=== PATIENT | male | born 1965 | race Two or more races ===

== ENCOUNTER 2025-09-08 19:22 | Emergency (ER) | payer OTHER, SELFPAY ==
--- OUTSIDE RECORDS SUMMARY | 2025-09-02 23:59 | XMS_ITS | Continuity of Care Document ---
Author Organization [facility] Adult Address [address] [place] [address]- Care Team Providers Care Software Qa System Specialist Name Role Phone John Kaufman Primary Care [facility]ici [id number] Date(s): 08/26/25 - 09/02/25 [facility] [address] [place] [address]- Encounter Diagnosis Amputated toe of right foot(Discharge Diagnosis) - 09/02/25 Wheelchair dependence(Discharge Diagnosis) - 08/26/25 Homeless single person(Discharge Diagnosis) - 08/26/25 Attending Physician: John Kaufman Referring Physician: Guille Roberts MD Encounter Type: Office Visit Allergies, Adverse Reactions, Alerts No Known Medication Allergies Functional Status Functional Status Assessment Assessment Assessment Component Result Effecti ve Date Disability status [CUBS] I'm Thriving - no identified disability 08/26/25 Do you have serious difficulty walking or climbing stairs Yes 08/26/25 Difficulty Reading O r Writing No 08/26/25 Because of a physica l, mental, or emotional condition, do you have serious difficulty concentrating, remembering, or making decisions No 08/26/25 Are you blind, or do you have serious difficulty seeing, even when wearing glasses No 08/26/25 Are you deaf, or do you have serious difficulty hearing No 08/26/25 Difficulty communica ting in usual language No 08/26/25 Because of a physica l, mental, or emotional condition, do you have difficulty doing errands alone such as visiting a physician's office or shopping Yes 08/26/25 Do you need any jesus tional assistance or accommodations during your visit No 08/26/25 Do you have difficul ty dressing or bathing Yes 08/26/25 Immunizations Given and Recorded Vaccine Date Status Refusal Reason zoster vaccine, inactivated 07/17/25 Recorded zoster vaccine, inactivated 03/04/25 Recorded Measles/Mumps/Rubella Virus Vaccine 04/30/25 Recor ded tetanus/diphtheria/pertussis, acel(Tdap) 04/30/25 Recorded pneumococcal 21-valent conjugate vaccine 03/04/25 Recorded Medications 4x4 dressing gauze 4x4 dressing gauze, See Instructions, # 30 each, Refills 0, Tot. Refills 0, Maintenance, Wound careand treatment: R BKA - betadine paint daily; cover with DSD, dee bandage. Keep ampushield in place,04/12/25 11:35:00 AM EDT, Supply Start Date: 04/12/25 Status: Ordered Medication Dispense Status: Completed Quantity: 30.0 Unit: each Total Allowed Fills: 1 Fills Dispensed: 0 Indications: Acquired absence of right leg below knee; aspirin 81 mg oral tablet, chewable = 81 mg, By Mouth, Daily, # 30 tablet, 0 Refills, Maintenance, 08/19/25 1:20:00 PM EST, Chew Tablet,[facility], Partial fill upon patient request if the prescription is for a schedule II opioid drug., 178, cm, 08/19/25 9:49:00 EST, Height, 100, kg, 08/19/25 9:49:00 EST, Dry Weight Start Date: 08/19/25 Status: Ordered Medication Dispense Status: Completed Quantity: 30.0 Unit: tablet Total Allowed Fills: 1 Fills Dispensed: 0 atorvastatin 40 mg oral tablet = 40 mg, By Mouth, Daily at bedtime, # 30 each, 0 Refills, Maintenance, 08/19/25 1:20:00 PM EST, Tablet, [facility], Partial fill upon patient request if the prescription is for a schedule II opioid drug., 178, cm, 08/19/25 9:49:00 EST, Height, 100, kg, 08/19/25 9:49:00 EST, Dry Weight Start Date: 08/19/25 Status: Ordered Medication Dispense Status: Completed Quantity: 30.0 Unit: each Total Allowed Fills: 1 Fills Dispensed: 0 Betadine 10% swab See Instructions, Wound care and treatment: R BKA - betadine paint daily; cover with DSD, dee bandage. Keep ampushield in place, # 30 each, 0 Refills, Maintenance, 04/12/25 11:34:00 AM EDT, Partial fill upon patient request if the prescription is for a schedule II opioid drug. Start Date: 04/12/25 Status: Ordered Medication Dispense Status: Completed Quantity: 30.0 Unit: each Total Allowed Fills: 1 Fills Dispensed: 0 Diabetic Shoe Fitting and diabetic shoes Diabetic Shoe Fitting and diabetic shoes, See Instructions, # 2 each, Refills 0, Tot. Refills 0, Maintenance, Diabetic shoe fitting and diabetic shoes E11.9 E11.621, 08/06/24 11:32:00 AM EDT, Supply Start Date: 08/06/24 Status: Ordered Medication Dispense Status: Completed Quantity: 2.0 Unit: each Total Allowed Fills: 1 Fills Dispensed: 0 Electric wheelchair Electric wheelchair, See Instructions, # 1 each, Refills 0, Tot. Refills 0, Maintenance, Dx: BKA Below Knee Amputation Z89.512, 07/15/25 1:31:00 PM EDT, Supply Start Date: 07/15/25 Status: Ordered Medication Dispense Status: Completed Quantity: 1.0 Unit: each Total Allowed Fills: 1 Fills Dispensed: 0 FLUoxetine 40 mg oral capsule 1 capsule = 40 mg, By Mouth, Daily, # 30 capsule, 0 Refills, Maintenance, 08/19/25 1:20:00 PM EST, Capsule, [facility], Partial fill upon patient request if the prescription is for a schedule II opioid drug., 178, cm, 08/19/25 9:49:00 EST, Height, 100, kg, 08/19/25 9:49:00 EST, Dry Weight Start Date: 08/19/25 Status: Ordered Medication Dispense Status: Completed Quantity: 30.0 Unit: capsule Total Allowed Fills: 1 Fills Dispensed: 0 gabapentin 600 mg oral tablet 1 tablet = 600 mg, By Mouth, 3 times a day, # 90 tablet, 0 Refills, Maintenance, 08/19/25 1:20:00 PMEST, Tablet, [facility], Partial fill upon patient request if the prescription is fora schedule II opioid drug., 178, cm, 08/19/25 9:49:00 EST, Height, 100, kg, 08/19/25 9:49:00 EST, Dry Weight Start Date: 08/19/25 Status: Ordered Medication Dispense Status: Completed Quantity: 90.0 Unit: tablet Total Allowed Fills: 1 Fills Dispensed: 0 Jardiance 25 mg oral tablet 1 tablet, By Mouth, Daily in AM, # 30 tablet, 5 Refills, Maintenance, 08/19/25 1:20:00 PM EST, [facility], 178, cm, 08/19/25 9:49:00 EST, Height, 100, kg, 08/19/25 9:49:00 EST, Dry Weight Start Date: 08/19/25 Status: Ordered Medication Dispense Status: Completed Quantity: 30.0 Unit: tablet Total Allowed Fills: 6 Fills Dispensed: 0 Kerlix Wrap Kerlix Wrap, See Instructions, # 30 each, Refills 0, Tot. Refills 0, Maintenance, Wound care and treatment: R BKA - betadine paint daily; cover with DSD, dee bandage. Keep ampushield in place, 04/12/25 11:31:00 AM EDT, Supply Start Date: 04/12/25 Status: Ordered Medication Dispense Status: Completed Quantity: 30.0 Unit: each Total Allowed Fills: 1 Fills Dispensed: 0 Indications: Unspecified open wound, right foot, initial encounter; lisinopril 20 mg oral tablet 20 mg, By Mouth, Daily, # 30 capsule, Refills 0, Tot. Refills 0, Maintenance, 08/19/25 1:20:00 PM EST, Route to Pharmacy Electronically, [facility], Partial fill upon patient request if the prescription is for a schedule II opioid drug., 178, cm, 08/19/25 9:49:00 EST, Height, 100, kg, 08/19/25 9:49:00 EST, Dry Weight Start Date: 08/19/25 Status: Ordered Medication Dispense Status: Completed Quantity: 30.0 Unit: capsule Total Allowed Fills: 1 Fills Dispensed: 0 multivitamin Multiple Vitamins oral tablet 1 tablet, By Mouth, Daily, # 30 tablet, 0 Refills, Maintenance, 08/19/25 1:20:00 PM EST, Tablet, [facility], Partial fill upon patient request if the prescription is for a schedule II opioid drug., 1 tablet By Mouth Daily, 178, cm, 08/19/25 9:49:00 EST, Height, 100, kg, 08/19/25 9:49:00 EST, Dry Weight Start Date: 08/19/25 Status: Ordered Medication Dispense Status: Completed Quantity: 30.0 Unit: tablet Total Allowed Fills: 1 Fills Dispensed: 0 Right below-knee amputation prosthetic Right below-knee amputation prosthetic, See Instructions, # 1 each, Refills 0, Tot. Refills 0, Maintenance, Right below-knee amputation prosthetic, 05/18/25 4:26:00 PM EDT, Supply Start Date: 05/18/25 Status: Ordered Medication Dispense Status: Completed Quantity: 1.0 Unit: each Total Allowed Fills: 1 Fills Dispensed: 0 Right below-knee amputation stump powder hand Right below-knee amputation stump powder hand, See Instructions, # 1 each, Refills 0, Tot. Refills 0, Maintenance, Right below-knee amputation stump powder hand, 05/18/25 4:26:00 PM EDT, Supply Start Date: 05/18/25 Status: Ordered Medication Dispense Status: Completed Quantity: 1.0 Unit: each Total Allowed Fills: 1 Fills Dispensed: 0 Indications: Complete traumatic amputation at level between knee and ankle, right lower leg, initial encounter; Peripheral vascular disease, unspecified; Right foot postop heel offloading shoe Right foot postop heel offloading shoe, See Instructions, # 1 each, Refills 0, Tot. Refills 0, Maintenance, Right foot postop heel offloading shoe, 02/02/25 4:29:00 PM EDT, Supply Start Date: 02/02/25 Status: Ordered Medication Dispense Status: Completed Quantity: 1.0 Unit: each Total Allowed Fills: 1 Fills Dispensed: 0 Indications: Unspecified open wound, right foot, initial encounter; Type 2 diabetes mellitus with diabetic neuropathic arthropathy; Wheelchair See Instructions, # 1 capsule, Maintenance, [id number] [id number] Please treat and evaluate, 03/25/25 9:57:00 AM EDT, Supply Start Date: 03/25/25 Status: Ordered Medication Dispense Status: Completed Quantity: 1.0 Unit: capsule Total Allowed Fills: 1 Fills Dispensed: 0 Indications: Acquired absence of right leg below knee; Mental Status Mental Status Assessment Assessment Assessment Component Result Effecti ve Date Patient Health Questionnaire 2 item (PHQ-2) total score [Reported] 4 08/26/25 Problem List Condition Confirmation Course Effective Dates Status H ealth Status Informant Amputated toe of right foot Confirmed Active Wheelchair dependence Confirmed Active Homeless single person Confirmed Active Hyperlipidemia Confirmed Active Hypertension Confirmed Active Insulin dependent type 2 diabetes mellitus Confirmed Active Peripheral vascular disease Confirmed Active Major depression, recurrent, chronic Confirmed Active Diagnosis Diagnosis Type Effective Dates Health Status Clinical Service Informant Wheelchair dependence Discharge Diagnosis 08/26/25 Homeless single person Discharge Diagnosis 08/26/25 Amputated toe of right foot Discharge Diagnosis 09/02/25 Vital Signs Most recent to oldest [Reference Range]: 1 Height 178 cm (08/26/25 11:07 AM) Weight 96.5 kg (08/26/25 11:07 AM) Oxygen Saturation [94-100 %] 99 % (08/26/25 11:07 AM) Pulse Rate [55-90 bpm] 74 bpm (08/26/25 11:07 AM) Body Mass Index [18.5-24.99 kg/m2] 30.46 kg/m2 *H* (08/26/25 11:07 AM) Blood Pressure [90-138/55-84 mm Hg] 132/ 78mm Hg (08/26/25 11:07 AM) Respiratory Rate [16-30 br/min] 16 br/mi n (08/26/25 11:07 AM) Mode of Delivery (Oxygen) Room air (08/26/25 11:07 AM) Blood pressure sites Arm, left (08/26/25 11:07 AM) Weight Obtained Via Standing scale (08/26/25 11:07 AM) Social History Social History Type Response Smoking Status Never (less than 100 in lifetime) entered on: 01/01/25 Sexual Orientation Self described orien tation: ; Choose not to disclose Sex Sex Representation Male (finding) Patient Care team information Care Team Personnel Name: Claudio GLASER, Xavier Position: [facility] RN Member Role: Primary Care Nurse Name: Deborah James RN Position: [facility] RN Member Role: Primary Care Nurse Name: Leonor Buchanan Position: [facility] RN Member Role: Primary Care Nurse Name: Kathie Marie RN Position: [facility] RN Member Role: Primary Care Nurse Name: Jeffery Anderson RN Position: [facility] RN Member Role: Primary Care Nurse Name: Delia Win RN Position: [facility] RN Member Role: Primary Care Nurse Name: John Kaufman Position: [facility] PCO Associate Professional Member Role: PCP Address: [address] [place] [id number] Telecom: Name: Thomas Monae RN Position: [facility] RN Member Role: Primary Care Nurse Name: Sharon Reilly RN Position: [facility] RN Member Role: Primary Care Nurse Name: Cristela Tapia Position: [facility] RN Member Role: Primary Care Nurse Name: Waleska Santos RN Position: [facility] RN Member Role: Primary Care Nurse Name: Saranya Verdugo RN Position: [facility] RN Member Role: Primary Care Nurse Name: Sher Tucker RN Position: [facility] RN Member Role: Primary Care Nurse Name: Elvia Dallas RN Position: [facility] RN Member Role: Primary Care Nurse Name: Renetta Bustamante LPN Position: [facility] RN Member Role: Primary Care Nurse Name: Jamari Landry RN Position: [facility] RN Member Role: Primary Care Nurse Care Team Related Persons Name: FAZAL VALDIVIA Name: MARCIAL SUNSHINE Name: HERRERA SUNSHINE Insurance Providers Guarantor name: SHAHBAZ Health Plan Information #: 1 Payer: [facility] Payer Identifier: Member Number: [id number] Group Number: [id number] Subscriber Identifier: [id number] Relationship to Subscriber: self Coverage Type: Medicaid (Managed Care) Coverage Verification Date: Telecom: Address:
--- OUTSIDE RECORDS SUMMARY | 2025-09-04 08:02 | XMS_ITS | Continuity of Care Document ---
Author Organization [facility] ter Address [address] [place] [address]- Care Team Providers Care Meeting Specialist Name Role Phone Elpidio CABELLO, John Alvarez Primary Care Physici an [place] [facility] [place] [id number] Date(s): 09/03/25 - 09/04/[address] [address]- Discharge Disposition: A-D/C Walkout Attending Physician: Not on Staff, Attending MD Admitting Physician: Not on Staff, Admitting MD Referring Physician: Not on Staff, Referring MD Encounter Type: Disch ES Allergies, Adverse Reactions, Alerts No Known Medication Allergies Immunizations Given and Recorded Vaccine Date Status [...] Refills, Maintenance, 08/19/25 1:20:00 PM EST, Chew Tablet,[facility], Partial fill upon patient request [...] Refills, Maintenance, 08/19/25 1:20:00 PM EST, Tablet, [facility], Partial fill upon patient request [...] Refills, Maintenance, 08/19/25 1:20:00 PM EST, Capsule, [facility], Partial fill upon patient request if [...] 0 Refills, Maintenance, 08/19/25 1:20:00 PMEST, Tablet, [facility], Partial fill upon patient request if [...] 5 Refills, Maintenance, 08/19/25 1:20:00 PM EST, [facility], 178, cm, 08/19/25 9:49:00 EST, Height, [...] 1:20:00 PM EST, Route to Pharmacy Electronically, [facility], Partial fill upon patient request [...] Refills, Maintenance, 08/19/25 1:20:00 PM EST, Tablet, [facility], Partial fill upon patient request [...] Fills Dispensed: 0 Right below-knee amputation stump acls nurse Right below-knee amputation stump acls nurse, See Instructions, # 1 each, Refills 0, Tot. Refills 0, Maintenance, Right below-knee amputation stump acls nurse, 05/18/25 4:26:00 PM EDT, Supply Start Date: [...] Assessment Assessment Component Result Effecti ve Date Hancock coma score total 15 Problem List Condition Confirmation Course Effective Dates Status H ealth Status Informant Amputated toe of right foot Confirmed Active Wheelchair dependence Confirmed Active Homeless single person Confirmed Active Hyperlipidemia Confirmed Active Hypertension Confirmed Active Insulin dependent type 2 diabetes mellitus Confirmed Active Obese class I Confirmed Active Peripheral vascular disease Confirmed Active Major depression, recurrent, chronic Confirmed Active Vital Signs Most recent to oldest [Reference Range]: 1 2 3 Height 178 cm (09/04/25 12:14 AM) 178 cm (09/04/25 12:10 AM) 178 cm (09/03/25 9:44 PM) Weight 95.5 kg (09/04/25 12:14 AM) 95.5 kg (09/04/25 12:10 AM) 95.5 kg (09/03/25 9:44 PM) Oxygen Saturation [94-100 %] 96 % (09/04/25 12:10 AM) 100 % (09/03/25 9:44 PM) Pulse Rate [55-90 bpm] 88 bpm (09/04/25 12:10 AM) 66 bpm (09/03/25 9:44 PM) Body Mass Index [18.5-24.99 kg/m2] 30.14 kg/m2 *H* (09/04/25 12:10 AM) 30.14 kg/m2 *H* (09/03/25 9:44 PM) Blood Pressure [90-138/55-84 mm Hg] 173/68mm Hg *H* (09/04/25 12:10 AM) 161/82mm Hg *H* (09/03/25 9:44 PM) Respiratory Rate [16-30 br/min] 17 br/min (09/04/25 12:10 AM) 16 br/min (09/03/25 9:44 PM) Temperature [96.8-100.4 DegF] 98.5 DegF (09/04/25 12:10 AM) 98.5 DegF (09/03/25 9:44 PM) Mode of Delivery (Oxygen) Room air (09/04/25 12:10 AM) Room air (09/03/25 9:44 PM) Blood pressure sites Arm, right (09/04/25 12:10 AM) Arm, right (09/03/25 9:44 PM) Temperature Route Oral (09/04/25 12:10 AM) Oral (09/03/25 9:44 PM) Dry Weight 95.5 kg (09/04/25 12:14 AM) 95.5 kg (09/04/25 12:10 AM) 95.5 kg (09/03/25 9:44 PM) Weight Obtained Via Patient lift hanging scale (09/03/25 9:44 PM) Dry Weight Obtained Via Patient/family s tated (09/03/25 9:44 PM) Social History Social History Type Response Smoking Status Never (less than 100 in lifetime) entered on: 01/01/25 Sexual Orientation Self described orien tation: ; Choose not to disclose Sex Sex Representation Male (finding) Status N/A Patient Care team information Care Team Personnel Name: Claudio GLASER, Xavier Position: [facility] RN Member Role: Primary Care Nurse Name: Deborah James RN Position: [facility] RN Member Role: Primary Care Nurse Name: Leonor Buchanan Position: [facility] RN Member Role: Primary Care Nurse Name: Kathie Marie RN Position: S RN Member Role: Primary Care Nurse Name: Jeffery Anderson RN Position: [facility] RN Member Role: Primary Care Nurse Name: Delia Win RN Position: [facility] RN Member Role: Primary Care Nurse Name: John Kaufman Position: [facility] PCO Associate Professional Member Role: PCP Address: [address] [place] [id number] Telecom: Name: Thomas Monae RN Position: [facility] RN Member Role: Primary Care Nurse Name: Sharon Reilly RN Position: [facility] RN Member Role: Primary Care Nurse Name: Cristela Tapia Position: [facility] RN Member Role: Primary Care Nurse Name: Waleska Santos RN Position: [facility] RN Member Role: Primary Care Nurse Name: Saranya Verdugo RN Position: [facility] RN Member Role: Primary Care Nurse Name: Sher Tucker RN Position: [facility] RN Member Role: Primary Care Nurse Name: Elvia Dallas RN Position: [facility] RN Member Role: Primary Care Nurse Name: Renetta Bustamante LPN Position: [facility] RN Member Role: Primary Care Nurse Name: Jamari Landry RN Position: [facility] RN Member Role: Primary Care Nurse Care Team Related Persons Name: FAZAL VALDIVIA Name: MARCIAL SUNSHINE Name: HERRERA SUNSHINE Insurance Providers Guarantor name: SHAHBAZ Health Plan Information #: 1 Payer: [facility] Payer Identifier: SHAHBAZ Member Number: [id number] Group Number: [id number] Subscriber Identifier: [id number] Relationship to Subscriber: self Coverage Type: Medicaid (Managed Care) Coverage Verification Date: SHAHBAZ Telecom: NA Address:
--- OUTSIDE RECORDS SUMMARY | 2025-09-04 22:36 | XMS_ITS | Continuity of Care Document ---
Author Organization [facility] ter Address [address] [place] [address]- Care Team Providers Care Liquid Loader Name Role Phone Elpidio CABELLO, John Alvarez Primary Care Physici an Encounter [facility] Date(s): 09/04/25 - 09/04/[address] [address]- Discharge Disposition: A-D/C Home Attending Physician: Zaire Cooley MD Admitting Physician: Zaire Cooley MD Referring Physician: Not on Staff, Referring [...] Refills, Maintenance, 08/19/25 1:20:00 PM EST, Chew Tablet,[facility], Partial fill upon patient [...] Refills, Maintenance, 08/19/25 1:20:00 PM EST, Tablet, [facility], Partial fill upon patient [...] Refills, Maintenance, 08/19/25 1:20:00 PM EST, Capsule, [facility], Partial fill upon patient request if the prescription is for a schedule II opioid drug., 178, cm, 08/19/25 9:49:00 EST, Height, 100, kg, 08/19/25 9:49:00 EST, Dry Weight Start Date: 08/19/25 Status: Ordered Medication Dispense Status: Completed Quantity: 30.0 Unit: capsule Total Allowed Fills: 1 Fills Dispensed: 0 gabapentin 300 mg oral capsule 600 mg, Capsule, By Mouth, Once, STAT, 09/04/25 9:45:00 PM EST, Stop date 09/04/25 10:26:13 PM EST Start Date: 09/04/25 Stop Date: 09/04/25 Status: Completed Medication Dispense Status: Completed Total Allowed Fills: 1 Fills Dispensed: 0 gabapentin 600 mg oral tablet 1 tablet = 600 mg, By Mouth, 3 times a day, # 90 tablet, 0 Refills, Maintenance, 08/19/25 1:20:00 PMEST, Tablet, [facility], Partial fill upon patient [...] 5 Refills, Maintenance, 08/19/25 1:20:00 PM EST, [facility], 178, cm, 08/19/25 9:49:00 [...] 1:20:00 PM EST, Route to Pharmacy Electronically, [facility], Partial fill upon patient request if the prescription is for a schedule II opioid drug., 178, cm, 08/19/25 9:49:00 EST, Height, 100, kg, 08/19/25 9:49:00 EST, Dry Weight Start Date: 08/19/25 Status: Ordered Medication Dispense Status: Completed Quantity: 30.0 Unit: capsule Total Allowed Fills: 1 Fills Dispensed: 0 lisinopril 20 mg oral tablet 20 mg, Tablet, By Mouth, Once, STAT, 09/04/25 9:46:00 PM EST, Stop date 09/04/25 10:26:14 PM EST Start Date: 09/04/25 Stop Date: 09/04/25 Status: Completed Medication Dispense Status: Completed Total Allowed Fills: 1 Fills Dispensed: 0 multivitamin Multiple Vitamins oral tablet 1 tablet, By Mouth, Daily, # 30 tablet, 0 Refills, Maintenance, 08/19/25 1:20:00 PM EST, Tablet, [facility], Partial fill upon patient request if [...] Fills Dispensed: 0 Right below-knee amputation 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, 05/18/25 4:26:00 PM EDT, Supply Start Date: [...] Assessment Assessment Component Result Effecti ve Date Courtney coma score total 15 Problem List Condition [...] recent to oldest [Reference Range]: 1 2 Oxygen Saturation [94-100 %] 99 % (09/04/25 6:36 PM) Pulse Rate [55-90 bpm] 89 bpm (09/04/25 6:36 PM) Blood Pressure [90-138/55-84 mm Hg] 162/ 78mm Hg *H* (09/04/25 10:23 PM) 174/103mm Hg *H* (09/04/25 6:36 PM) Respiratory Rate [16-30 br/min] 18 br/mi n (09/04/25 10:24 PM) 12 br/min *L* (09/04/25 6:36 PM) Temperature [96.8-100.4 DegF] 98.8 DegF (09/04/25 6:36 PM) Mode of Delivery (Oxygen) Room air (09/04/25 6:36 PM) Blood pressure sites Arm, left (09/04/25 6:36 PM) Temperature Route Oral (09/04/25 6:36 PM) Social History Social History Type Response Smoking Status Never (less than 100 in lifetime) entered on: 01/01/25 Sexual Orientation Self described orien tation: ; Choose not to disclose Sex Sex Representation Male (finding) Status Not Patient Care team information Care Team Personnel Name: Xavier Snyder RN Position: [facility] RN Member Role: Primary Care Nurse Name: Deborah James RN Position: [facility] RN Member Role: Primary Care Nurse Name: Leonor Buchanan Position: [facility] RN Member Role: Primary Care Nurse Name: Kathie Marie RN Position: [facility] RN Member Role: Primary Care Nurse Name: Jeffery Anderson RN Position: [facility] RN Member Role: Primary Care Nurse Name: Delia Win RN Position: S RN Member Role: Primary Care Nurse Name: John Kaufman Position: [facility] PCO Associate Professional Member Role: PCP Address: [address] [place] [address] [place] [address]- Telecom: Name: Thomas Monae RN Position: S RN Member Role: Primary Care Nurse Name: Sharon Reilly RN Position: S RN Member Role: Primary Care Nurse Name: Cristela Tapia Position: S RN Member Role: Primary Care Nurse Name: Waleska Santos RN Position: S RN Member Role: Primary Care Nurse Name: Saranya Verdugo RN Position: [facility] RN Member Role: Primary Care Nurse Name: Sher Tucker RN Position: [facility] RN Member Role: Primary Care Nurse Name: Elvia Dallas RN Position: [facility] RN Member Role: Primary Care Nurse Name: Renetta Bustamante LPN Position: [facility] RN Member Role: Primary Care Nurse Name: Jamari Landry RN Position: [facility] RN Member Role: Primary Care Nurse Care Team Related Persons Name: FAZAL VALDIVIA Name: MARCIAL SUNSHINE Name: HERRERA SUNSHINE Insurance Providers Guarantor name: SHAHBAZ Health Plan Information #: 1 Payer: [facility] Payer Identifier: SHAHBAZ Member Number: [id number] Group Number: [id number] Subscriber Identifier: [id number] Relationship to Subscriber: self Coverage Type: Medicaid (Managed Care) Coverage Verification Date: Telecom: Address:
--- OUTSIDE RECORDS SUMMARY | 2025-09-05 23:59 | XMS_ITS | Continuity of Care Document ---
Author Organization [facility] Address [address] [place] [address]- Care Team Providers Care Group Insurance Special Agent Name Role Phone Elpidio CABELLO, John Alvarez Primary Care Physici an Encounter [facility] Date(s): 08/06/25 - 09/05/25 [facility]/[address] [address]- Encounter Type: Triage Allergies, Adverse Reactions, Alerts No Known Medication [...] Refills, Maintenance, 08/19/25 1:20:00 PM EST, Chew Tablet,[facility], Partial fill upon patient request [...] Refills, Maintenance, 08/19/25 1:20:00 PM EST, Tablet, [facility], Partial fill upon patient request [...] Refills, Maintenance, 08/19/25 1:20:00 PM EST, Capsule, [facility], Partial fill upon patient request [...] 0 Refills, Maintenance, 08/19/25 1:20:00 PMEST, [facility] fill upon patient request if [...] 5 Refills, Maintenance, 08/19/25 1:20:00 PM EST, [facility], 178, cm, 08/19/25 9:49:00 EST, Height, [...] 1:20:00 PM EST, Route to Pharmacy Electronically, [facility], Partial fill upon patient request [...] Refills, Maintenance, 08/19/25 1:20:00 PM EST, Tablet, [facility], Partial fill upon patient request if [...] Fills Dispensed: 0 Right below-knee amputation stump general pediatrician Right below-knee amputation stump general pediatrician, See Instructions, # 1 each, Refills 0, Tot. Refills 0, Maintenance, Right below-knee amputation stump general pediatrician, 05/18/25 4:26:00 PM EDT, Supply Start Date: [...] Acquired absence of right leg below knee; Problem List Condition Confirmation Course Effective Dates Status H ealth Status Informant Amputated toe of right foot Confirmed Active Wheelchair dependence Confirmed Active Homeless single person Confirmed Active Hyperlipidemia Confirmed Active Hypertension Confirmed Active Insulin dependent type 2 diabetes mellitus Confirmed Active Obese class I Confirmed Active Peripheral vascular disease Confirmed Active Major depression, recurrent, chronic Confirmed Active Social History Social History Type Response Smoking Status Never (less than 100 in lifetime) entered on: 01/01/25 Sexual Orientation Self described orien tation: ; Choose not to disclose Sex Sex Representation Male (finding) Patient Care team information Care Team Personnel Name: Xavier Snyder RN Position: [facility] RN Member Role: Primary Care Nurse Name: Deborah James RN Position: [facility] RN Member Role: Primary Care Nurse Name: Leonor Buchanan Position: [facility] RN Member Role: Primary Care Nurse Name: Kathie Marie RN Position: [facility] RN Member Role: Primary Care Nurse Name: Jeffery Anderson RN Position: [facility] RN Member Role: Primary Care Nurse Name: Delia Win RN Position: [facility] RN Member Role: Primary Care Nurse Name: John Kaufman Position: [facility] PCO Associate Professional Member Role: PCP Address: [address] [place] [address]- Telecom: Name: Thomas Monae RN Position: S RN Member Role: Primary Care Nurse Name: Sharon Reilly RN Position: [facility] RN Member Role: Primary Care Nurse Name: Cristela Tapia Position: [facility] RN Member Role: Primary Care Nurse Name: Waleska Santos RN Position: [facility] RN Member Role: Primary Care Nurse Name: Saranya Verdugo RN Position: [facility] RN Member Role: Primary Care Nurse Name: Sher Tucker RN Position: [facility] RN Member Role: Primary Care Nurse Name: Elvia Dallas RN Position: [facility] RN Member Role: Primary Care Nurse Name: Renetta Bustamante LPN Position: [facility] RN Member Role: Primary Care Nurse Name: Jamari Landry RN Position: [facility] RN Member Role: Primary Care Nurse Care Team Related Persons Name: FAZAL VALDIVIA Name: MARCIAL SUNSHINE Name: HERRERA SUNSHINE Insurance Providers Guarantor name: SHAHBAZ Health Plan Information #: 1 Payer: [facility] Payer Identifier: SHAHBAZ Member Number: [id number] Group Number: [id number] Subscriber Identifier: SHAHBAZ Relationship to Subscriber: self Coverage Type: Medicaid (Managed Care) Coverage Verification Date: NA Telecom: NA Address:
--- OUTSIDE RECORDS SUMMARY | 2025-09-05 23:59 | XMS_ITS | Continuity of Care Document ---
Author Organization [facility] Address [address] [place] [address]- Care Team Providers Care Draw Press Operator Name Role Phone Elpidio CABELLO, John Alvarez Primary Care Physici an Encounter [facility] Date(s): 08/06/25 - 09/05/25 [facility] [address] [place] [address]- Encounter Type: Triage Allergies, Adverse Reactions, Alerts [...] Refills, Maintenance, 08/19/25 1:20:00 PM EST, Chew Tablet,[facility], Partial fill upon patient request [...] Refills, Maintenance, 08/19/25 1:20:00 PM EST, Tablet, [facility], Partial fill upon patient request [...] Refills, Maintenance, 08/19/25 1:20:00 PM EST, Capsule, [facility], Partial fill upon patient request [...] 0 Refills, Maintenance, 08/19/25 1:20:00 PMEST, Tablet, [facility] 3, Partial fill upon patient request [...] 5 Refills, Maintenance, 08/19/25 1:20:00 PM EST, [facility] 3, 178, cm, 08/19/25 9:49:00 EST, [...] 1:20:00 PM EST, Route to Pharmacy Electronically, [facility], Partial fill upon patient request [...] Refills, Maintenance, 08/19/25 1:20:00 PM EST, Tablet, [facility], Partial fill upon patient request [...] Fills Dispensed: 0 Right below-knee amputation stump antisqueak applier Right below-knee amputation stump antisqueak applier, See Instructions, # 1 each, Refills 0, Tot. Refills 0, Maintenance, Right below-knee amputation stump antisqueak applier, 05/18/25 4:26:00 PM EDT, Supply Start Date: [...] Team Personnel Name: Xavier Snyder RN Position: [facility] RN Member Role: Primary Care Nurse Name: Deborah James RN Position: [facility] RN Member Role: Primary Care Nurse Name: Leonor Buchanan Position: [facility] RN Member Role: Primary Care Nurse Name: Kathie Marie RN Position: [facility] RN Member Role: Primary Care Nurse Name: Jeffery Anderson RN Position: [facility] RN Member Role: Primary Care Nurse Name: Delia Win RN Position: [facility] RN Member Role: Primary Care Nurse Name: John Kaufman Position: [facility] PCO Associate Professional Member Role: PCP Address: [address] [place] [id number] Telecom: Name: Thomas Monae RN Position: S RN Member Role: Primary Care Nurse Name: Sharon Reilly RN Position: [facility] RN Member Role: Primary Care Nurse Name: Cristela Tapia Position: [facility] RN Member Role: Primary Care Nurse Name: aWleska Santos RN Position: [facility] RN Member Role: Primary Care Nurse Name: Saranya Verdugo RN Position: [facility] RN Member Role: Primary Care Nurse Name: Sher Tucker RN Position: [facility] RN Member Role: Primary Care Nurse Name: Elvia Dallas RN Position: [facility] RN Member Role: Primary Care Nurse Name: Renetta Bustamante LPN Position: [facility] RN Member Role: Primary Care Nurse Name: Jamari Landry RN Position: [facility] RN Member Role: Primary Care Nurse Care Team Related Persons Name: FAZAL VALDIVIA Name: MARCIAL SUNSHINE Name: HERRERA SUNSHINE Insurance Providers Guarantor name: SHAHBAZ Health Plan Information #: 1 Payer: [facility] Payer Identifier: SHAHBAZ Member Number: [id number] Group Number: [id number] Subscriber Identifier: [id number] Relationship to Subscriber: self Coverage Type: Medicaid (Managed Care) Coverage Verification Date: NA Telecom: Address:
--- NOTE | ~2025-09-08 | XR_ITS ---
CLINICAL HISTORY: L shoulder pain , fall 4 view left shoulder Comparison: None provided Findings: Bones intact. No dislocations. 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 No erosions. No radiopaque foreign body. Calcification of the distal supraspinatus. IMPRESSION: 1. No acute osseous abnormality. 2. Supraspinatus calcific tendinosis. This document has been electronically signed by: Vincent Roberts MD, PHD on 09/08/2025 23:20:52
[2025-09-08 19:31] VITALS: BP 150/80; BP 159/77; PULSE 85; PULSE 88; RESP 18; TEMP 37.1; O2SAT 96; O2SAT 98; BMI 32.2
--- OUTSIDE RECORDS SUMMARY | 2025-09-08 20:06 | XMS_ITS | Encounter Summary ---
Author Organization [facility] Address [address] [place] [id number] Phone Care Team Providers Care Supplier Quality Engineer Name Role Phone Pcp, Unknown Primary Care Provider John Nickerson Primary Care Provide r Encounter Details Date Type Department Care Team (Late st Contact Info) Description 05/05/2025 Procedure Pass [facility], Ct Scan - [facility] [address] [place] [address] Social History Tobacco Use Types Packs/Day Years Used Date Smoking Tobacco: Never Smokeless Tobacco: Never Alcohol Use Standard Drinks/Week Comments Not Currently 0 (1 standard drink = 0.6 oz pur e alcohol) Education Answer Date Recorded Are you interested in more education? Not on fabián e 03/18/2025 Are you concerned about learning? Not on file 03/18/2025 No 03/18/2025 No 03/18/2025 Food Answer Date Recorded Within the past 6 months we worried whether our food would run out before we got money to buy more. Never True 05/05/2025 Within the past 6 months the food we bought just didn't last and we didn't have enough money to get more. Never True Residential Stability Answer Date Recor ded What is your housing situation today? I have adama sing 05/05/2025 How many times have you move d in the past 12 months? Zero (I did not move) 05/05/2025 Paying for Meds Answer Date Recorded Do you have trouble paying for medicines? No 05/05/2025 Paying Utility Bills Answer Date Record ed Do you have trouble paying your heating or elect ricity bill? No 05/05/2025 Transportation Answer Date Recorded Has the lack of transportati on kept you from medical appointments or from getting medications? No 05/05/2025 Digital Access Answer Date Recorded No 05/05/2025 Yes 05/05/2025 Do you have reliable internet access at home? Ye s 05/05/2025 Do you have a device (e.g., phone, tablet, computer) with a working camera? Yes 05/05/2025 Intimate Partner Violence Answer Date R ecorded Are you denied basic needs s uch as food, clothing, or medical care? No 05/05/2025 In the past 12 months have y ou been in a relationship with a person who hurts, threatens, or tries to control you? No 05/05/2025 Are you denied basic needs s uch as food, clothing, or medical care? No 05/05/2025 In the past 12 months have y ou been in a relationship with a person who hurts, threatens, or tries to control you? No 05/05/2025 Sex and Gender Information Value Date Recorded Sex Assigned at Male 05/05/2025 3:55 PM EDT Legal Sex Male 3:16 PM EDT Gender Identity Male 05/05/2025 3:55 PM EDT Sexual Orientation Straight 05/05/2025 3: 55 PM EDT documented as of this encounter Functional Status * Calculated C-SSRS Risk Score (Lifetime/Recent) Answer Date of Assessment Author No Risk Indicated 05/05/2025 3:55 PM EDT Rosemary Hdez, RN * Petroleum Suicide Severity Rating Scale (Screener/Recent Self-Report) Question Answer Date of Assessment Author 1. Wish to be (Past 1 Month) No 025 3:55 PM EDT Rosemary Meza, RN 2. Non-Specific Active Suici sarah Thoughts (Past 1 Month) No 05/05/2025 3:55 PM EDT Rosemary Meza, RN 6. Suicidal Behavior (Lifetime) No 3:55 PM EDT Rosemary Meza, RN documented as of this encounter Plan of Treatment Not on file documented as of this encounter Visit Diagnoses Not on filedocumented in this encounter Additional Health Concerns Infection Onset Date Last Indicated Resolved Time CoV-Risk 07/01/2025 07/01/2025 07/12/2025 1:21 AM EDT documented as of this encounter Care Teams Supplier Quality Engineer Relationship Specialty Start Date End Date Pcp, Unknown PCP - General 05/05/25 06/30/25 John Magallanes PA [address] [place] [address] PCP - General Physician Physical Education Teacher 07/01/25 documented as of this encounter Additional Source Comments The information contained in this document represents components of the legal health record. It is not the complete legal health record.[facility]
--- OUTSIDE RECORDS SUMMARY | 2025-09-08 20:06 | XMS_ITS | Encounter Summary ---
Author Organization [facility] Address [address] [place] [phone] Phone Care Team Providers Care Meat Butcher Name Role Phone Pcp, Unknown Primary Care Provider John Nickerson Primary Care Provide r Encounter Details Date Type Department Care Team (Late st Contact Info) Description 05/05/2025 Procedure Pass [facility], Ct Scan - [facility] [address] [place] [address] Social History Tobacco Use Types Packs/Day Years [...] 3:55 PM EDT Rosemary Hdez, RN * Rogers Suicide Severity Rating Scale (Screener/Recent Self-Report) Question [...] documented as of this encounter Care Teams Meat Butcher Relationship Specialty Start Date End Date Pcp, Unknown PCP - General 05/05/25 06/30/25 John Magallanes PA [address] [place] [address] PCP - General Physician Manager Costing 07/01/25 documented as of this encounter Additional Source Comments The information contained in this document represents components of the legal health record. It is not the complete legal health record.[facility]
--- OUTSIDE RECORDS SUMMARY | 2025-09-08 20:06 | XMS_ITS | Clinical Summary ---
Author Organization [facility] Address [address] [place] [address] [place] [id number] Phone Care Team Providers Care Ordering Box Operator Name Role Phone John Magallanes Primary Care Provide r Allergies No known active allergies Medications ondansetron (ZOFRAN-ODT) 4 MG disintegrating tablet (To-Go) Take 1-2 tablet(s) by mouth every 8 hours as needed for nausea/vomit ing 6 tablet 5 Active ondansetron (ZOFRAN-ODT) 4 MG disintegrating tablet Take 1 tablet (4 mg total) by mouth every 8 (eight) hours as needed for nausea. 8 tablet 5 Active polyethylene glycol (MIRALAX) 17 gram packet Take 17 g by mouth daily. Active tamsulosin (FLOMAX) 0.4 mg Cap Take 0.4 mg by mouth daily. Active ID-ketorolac (15-069H) 0.5% ophthalmic solution Place 1 drop into the left eye 4 (four) times a day. Each eye Active ofloxacin (OCUFLOX) 0.3 % ophthalmic solution Place 1 drop into each eye 4 (four) times a day. Active prednisoLONE acetate (PRED FORTE) 1 % ophthalmic suspension Place 1 drop into the left eye 4 (four) times a day. Active sulfamethoxazole-tr imethoprim (BACTRIM DS) 800-160 mg per tablet Take 1 tablet by mouth 2 (two) times a day. Active insulin lispro (ADMELOG, HUMALOG) 100 unit/mL injection pen Inject 2 Units under the skin 3 (three) times a day with meals. Active aspirin 81 MG EC tablet Take 81 mg by mouth daily. Active atorvastatin (LIPITOR) 40 MG tablet Take 40 mg by mouth nightly at bedtime. Active docusate (COLACE) 100 mg tablet Take 100 mg by mouth 2 (two) times a day. Active empagliflozin (JARDIANCE) 25 mg tablet Take 25 mg by mouth daily. Active insulin glargine (LANTUS) 100 unit/mL injection vial Inject 10 Units under the skin daily. Active lisinopril (PRINIVIL,ZESTRIL) 20 MG tablet Take 20 mg by mouth daily. Active oxyCODONE HCl 10 mg Tab Take 5 mg by mouth every 4 (four) hours as needed (pain). Active gabapentin (NEURONTIN) 100 MG capsule Take 6 capsules (600 mg total) by mouth 3 (three) times a day for 5 days. 90 capsule Active Encounters Date Type Department Care Team Description 08/28/2025 7:34 PM EST - 08/29/2025 7:08 AM EST Emergency [facility] [address] [place] [address] Yumi Gill MD Discharge Disposition: Home or Self Care 07/01/2025 7:19 AM EDT - 07/01/2025 10:42 AM EDT Emergency [facility] Emergency [address] [place] [address] Discharge Disposition: Home or Self Care 06/26/2025 8:58 PM EDT - 06/26/2025 10:17 PM EDT Emergency [facility] [address] [place] [address] Marcial Luna MD Discharge Disposition: Home or Self Care from Last 3 Months Social History Tobacco Use Types Packs/Day Years Used Date Smoking Tobacco: Never Smokeless Tobacco: Never Tobacco Cessation:Counseling Given: Not Answered Alcohol Use Standard Drinks/Week Comments Not Currently [...] got money to buy more. Never True 07/01/2025 Within the past 6 months the food we bought just didn't last and we didn't have enough money to get more. Never True Residential Stability Answer Date Recor ded What is your housing situation today? I have adama sr 07/01/2025 How many times have you move d in the past 12 months? Zero (I did not move) 07/01/2025 Paying for Meds Answer Date Recorded Do you have trouble paying for medicines? No 07/01/2025 Paying Utility Bills Answer Date Record ed Do you have trouble paying your heating or elect ricity bill? No 07/01/2025 Transportation Answer Date Recorded Has the lack of transportati on kept you from medical appointments or from getting medications? Yes 07/01/2025 Digital Access Answer Date Recorded No 07/01/2025 Yes 07/01/2025 Do you have reliable internet access at home? Ye s 07/01/2025 Do you have a device (e.g., phone, tablet, computer) with a working camera? Yes 07/01/2025 Intimate Partner Violence Answer Date R ecorded Are you denied basic needs s uch as food, clothing, or medical care? Deferred 08/28/2025 In the past 12 months have y ou been in a relationship with a person who hurts, threatens, or tries to control you? Deferred 08/28/2025 Are you denied basic needs s uch as food, clothing, or medical care? Deferred 08/28/2025 In the past 12 months have y ou been in a relationship with a person who hurts, threatens, or tries to control you? Deferred 08/28/2025 Sex and Gender Information Value Date Recorded Sex Assigned at Male 05/05/2025 3:55 PM EDT Legal Sex Male 3:16 PM EDT Gender Identity Male 05/05/2025 3:55 PM EDT Sexual Orientation Straight 05/05/2025 3: 55 PM EDT Last Filed Vital Signs Vital Sign Reading Time Taken Comments Blood Pressure 149/85 08/29/2025 5:53 AM EST Pulse 77 08/29/2025 5:53 AM EST Temperature 36.1 C (97 F) 08/29/2025 5:53 AM EST Respiratory Rate 16 08/29/2025 5:53 AM EST Oxygen Saturation 100% 08/29/2025 5:53 AM EST Inhaled Oxygen Concentration - - Weight 93 kg (205 lb) 07/01/2025 7:28 AM EDT Height 182.9 cm (6') 07/01/2025 7:28 AM EDT Body Mass Index 27.8 07/01/2025 7:28 AM EDT Plan of Treatment Health Maintenance Due Date Last Done Comments Adult Td,Tdap Booster 1964 CREATININE LEVEL 1964 LIPID PANEL 1964 POTASSIUM LEVEL 1964 DEPRESSION SCREENING 1976 HEPATITIS C SCREENING 1982 HIV ONE-TIME SCREENING (18-6 5 YEARS) 1982 SMOKING STATUS SCREENING (On ce After 26 Yrs) 1990 COLOGUARD 2009 COLONOSCOPY 2009 COLORECTAL CANCER SCREENING 2009 FIT TEST 2009 FOBT 2009 SIGMOIDOSCOPY 2009 VIRTUAL COLONOSCOPY 2009 PNEUMOCOCCAL VACCINES (50+ y ears) (1 of 1 - PCV) 2014 RSV VACCINE (1 - Risk 50-74 years 1-dose series) 2014 ZOSTER VACCINES (1 of 2) 2014 INFLUENZA VACCINE (#1) 2025 COVID-19 VACCINE (1 - 2024-2 6 season) 2025 SCREENING FOR DIABETES 08/29/2028 08/29/2025 HEPATITIS A VACCINES Aged Out No long er eligible based on patient's age to complete this topic HIB VACCINES Aged Out No longer eligi ble based on patient's age to complete this topic MENINGOCOCCAL VACCINES (ACWY) Aged Out No longer eligible based on patient's age to complete this topic MENINGOCOCCAL VACCINES (B) Aged Out N o longer eligible based on patient's age to complete this topic Medical Devices Not on file Procedures Procedure Name Priority Date/Time Associated Diagnosis Comments POCT GLUCOSE STAT 08/29/2025 1:03 AM EST XR FEMUR (LEFT) 2 VIEWS Routine 08/28/2025 8:14 PM EST XR SHOULDER 2 VIEWS (LEFT) Routine 08/28/2025 8:13 PM EST ECG 12-LEAD STAT 07/01/2025 9:45 AM EDT POCT GLUCOSE Routine 07/01/2025 8:45 AM EDT COVID PANDEMIC RESPIRATORY VIRAL ORDER (PRO) STAT 07/01/2025 8:42 AM EDT POCT GLUCOSE Routine 06/26/2025 7:30 PM EDT from Last 3 Months Results * (ABNORMAL) POCT Glucose (08/29/2025 1:03 AM EST) Glucose 118(H) 70 - 99 mg/dL 08/29/2025 1:11 AM EST [facility] Blood (Blood) 08/29/2025 1:0 3 AM EST 08/29/2025 1:11 AM EST us Yumi Gill MD LAB POCT DOCKED DEVICE UNSOL ICTED RESULTS Final Result Performing Organization Address City/State/[facility] Co de Phone Number [address] [address] * XR FEMUR (LEFT) 2 VIEWS (08/28/2025 8:14 PM EST) Anatomical Region Laterality Modality Thigh Left Computed Radiogr aphy 08/28/2025 9:24 PM EST Impressions 08/28/2025 9:25 PM EST No fracture or dislocation. Narrative 08/28/2025 9:25 PM EST XR FEMUR 2 OR MORE VIEWS (LEFT) Referring clinician's provided indication for this examination in Epic: Pain COMPARISON: None FINDINGS: No fracture. Normal alignment. No lytic or blastic lesion. Visualized portion of the hip and knee appear normal. Procedure Note Tere Christie MD - 08/28/2025 XR FEMUR 2 OR MORE VIEWS (LEFT) Referring clinician's provided indication for this examination in [facility]:Pain COMPARISON: None FINDINGS: No fracture. Normal alignment. No lytic or blastic lesion. Visualizedportion of the hip and knee appear normal. IMPRESSION: No fracture or dislocation. Jose Alejandro Walls PA-C IMG XR LOWER EXTREMITY Final Result * XR SHOULDER 2 VIEWS (LEFT) (08/28/2025 8:13 PM EST) Anatomical Region Laterality Modality Shoulder Left Computed Radiogr aphy 08/28/2025 9:23 PM EST Impressions 08/28/2025 9:24 PM EST No fracture or dislocation. Narrative 08/28/2025 9:24 PM EST XR SHOULDER 2 OR MORE VIEWS (LEFT) Referring clinician's provided indication for this examination in [facility]: Pain COMPARISON: None FINDINGS: No acute fracture or dislocation. Globular mineralized densities projecting adjacent to the greater tuberosity likely reflects calcific tendinopathy. Moderate degenerative changes of the joint. Procedure Note Tere Christie MD - 08/28/2025 XR SHOULDER 2 OR MORE VIEWS (LEFT) Referring clinician's provided indication for this examination in [facility]:Pain COMPARISON: None FINDINGS: No acute fracture or dislocation. Globular mineralized densitiesprojecting adjacent to the greater tuberosity likely reflects calcifictendinopathy. Moderate degenerative changes of the joint. IMPRESSION: No fracture or dislocation. Jose Alejandro Walls PA-C IMG XR UPPER EXTREMITY Final Result * ECG 12-LEAD (07/01/2025 9:45 AM EDT) Ventricular Rate EKG/MIN 77 BPM [facility] Atrial Rate 77 BPM [facility] [place] Interval 136 ms [facility] QRS Duration 78 ms [facility] QT Interval 400 ms [facility] QTC Interval 452 ms [facility] [place] 25 degrees [facility] R [place] 28 degrees [facility] T [place] 37 degrees [facility] 07/01/2025 9:45 AM EDT 07/01/2025 4:59 PM EDT Narrative [facility] - 07/01/2025 4:59 PM EDT Normal sinus rhythm Normal ECG No previous ECGs available Confirmed by Preet Mcelroy ([id number]) on 07/01/2025 4:59:42 PM us Maribel Reese PA-C ECG ORDERABLES Final Resul t Performing Organization Address [facility] de Phone Number [email or web address] * (ABNORMAL) POCT Glucose (07/01/2025 8:45 AM EDT) Only the most recent of2 resultswithin the time period is included. Glucose, POCT 108(H) 70 - 100 mg/dL [facility] 07/01/2025 8:45 AM EDT 07/01/2025 8:47 AM EDT us Unknown Unknown MD POINT OF CARE TEST ORDERABLES Final Result Performing Organization Address [facility] de Phone Number [address] [address] * COVID Pandemic Respiratory Viral Order (PRO) (07/01/2025 8:42 AM EDT) [facility] Signature Test Ordered Rapid COVID has been ordered [facility] Specimen Source/Description NASAL [facility] SARS-CoV 2 (COVID-19) PCR Not Detected Not Detected [facility] Comment: SARS-CoV-2 not detected Negative results do not preclude SARS-CoV-2 infection and should not be used as the sole basis for patient management decisions. Negative results must be combined with clinical observations, patient history, and epidemiological information. Other (Nasopharyngeal swab) 07/01/2025 8:42 AM EDT 07/01/2025 9:08 AM EDT us Maribel Reese PA-C LAB GENERAL ORDERABLES Ginger l Result Performing Organization Address [facility] Co de Phone Number [address] [phone] from Last 3 Months Insurance [employer] Care Teams Ordering Box Operator Relationship Specialty Start Date End Date John Magallanes PA [facility] [place] [address] PCP - General Physician Ranger Aide 07/01/25 Additional Source Comments The information contained in this document represents components of the legal health record. It is not the complete legal health record.[facility]
--- OUTSIDE RECORDS SUMMARY | 2025-09-08 20:06 | XMS_ITS | Clinical Summary ---
Author Organization 175 [facility] Address [address] [place] [address] Phone Care Team Providers Care [employer] Name Role Phone Guille Roberts MD Primary Care Provider [phone] Allergies No known active allergies Medications No known medications Encounters Date Type Department Care Team Description 08/22/2025 7:33 PM EST - 08/22/2025 8:29 PM [facility] [address] [place] [address] Fall, initial encounter (Primary Dx); Homeless; Encounter for medication refill Discharge Disposition: Home or Self Care 08/17/2025 10:18 PM EST - 08/18/2025 5:31 PM [facility] Emergency [address] [place] [address] Winifred Moody MD [place], [place], [place] Suicidal ideation (Primary Dx); Threatening to others; Homelessness Discharge Disposition: Home or Self Care from Last 3 Months Surgical History Surgery Date Site/Laterality Comments LEG AMPUTATION THROUGH LOWER TIBIA AND FIBULA Right Medical History Medical History Date Comments DM (diabetes mellitus) ([facility] V24, [facility] V28 ) HTN (hypertension) Hyperlipidemia Depression Below-knee amputation ([facility] V24, [facility] V28) right Social History Tobacco Use Types Packs/Day Years Used Date Smoking Tobacco: Never Smokeless Tobacco: Current Tobacco Cessation:Ready to Q uit: Not Asked; Counseling Given: Not Answered Alcohol Use Standard Drinks/Week Comments Never 0 (1 standard drink = 0.6 oz pur e alcohol) Food Access & Nutrition Answer Date Rec orded Do you have access to a vari ety of food including fruits and vegetables? No 08/18/2025 Access to Healthcare Answer Date Record ed Within the last 3 months, ho w many times did you visit the emergency department for your medical care? 3 08/18/2025 Health Literacy Answer Date Recorded How often do you need to hav e someone help you when you read instructions, pamphlets, or other written material from your doctor or pharmacy? Never 08/18/2025 Caregiver: How often do you need to have someone help you when you read instructions, pamphlets, or other written material from your doctor or pharmacy? Not on file 08/18/2025 Financial Risk Answer Date Recorded How hard is it for you to pa y for the very basics like food, housing, medical care, and air conditioning / heating? Somewhat hard 08/18/2025 Transportation Answer Date Recorded Has the lack of transportati on kept you from meetings, work, or from getting things needed for daily living? Yes Has the lack of transportati on kept you from medical appointments or from getting medications? Yes 08/18/2025 Social Isolation Answer Date Recorded How often do you feel lonely or isolated from those around you? Sometimes 08/18/2025 Food Risk Answer Date Recorded Within the past 12 months we worried whether our food would run out before we got money to buy more. Sometimes true 025 Within the past 12 months th e food we bought just didn't last and we didn't have money to get more. Not asked 08/18/2025 Dependent Care Answer Date Recorded Do you need help finding or paying for care for your loved ones. For example, child abuse worker or elderly care for an older adult? No 08/18/2025 Education Answer Date Recorded Do you think completing more education or training, like finishing a GED, going to college, or learning a trade, would be helpful for you? No 08/18/2025 Employment and Income Answer Date Recor ded During the last four weeks, have you been actively looking for work? No 08/18/2025 Sex and Gender Information Value Date Recorded Sex Assigned at Not on file Legal Sex Male 12:50 PM EST Gender Identity Not on file Sexual Orientation Not on file Obstetrics History Last Filed Vital Signs Vital Sign Reading Time Taken Comments Blood Pressure 146/76 08/22/2025 6:53 PM EST Pulse 64 08/22/2025 6:53 PM EST Temperature 37.1 C (98.8 F) 08/22/2025 6:53 PM EST Respiratory Rate 18 08/22/2025 6:53 PM EST Oxygen Saturation 98% 08/22/2025 6:53 PM EST Inhaled Oxygen Concentration - - Weight - - Height - - Body Mass Index - - Plan of Treatment Health Maintenance Due Date Last Done Comments Colorectal Cancer Screening: Colonoscopy 1965 Pneumococcal Vaccine: 50+ Years (1 of 1 - PCV) 2014 Cholesterol Screening (Lipid Panel) 09/23/2024 HIV Screening 09/23/2024 Hepatitis C Screening 09/23/2024 Depression Screening 10/14/2024 COVID-19 Vaccine (1 - 2024-2 6 season) 2025 Influenza Vaccine (#1) 2025 Hypertension/CHF/CAD Annual BMP Blood Test 08/17/2026 08/17/2025 Social Influencers of Health Screening 08/18/2026 08/18/2025 DTaP,Tdap,and Td Vaccines (2 - Td or Tdap) 04/30/2035 04/30/2025 RSV Immunization Adult Patients (1 - 1-dose 75+ series) 2039 MMR Vaccines Aged Out 04/30/2025 No longer eligi ble based on patient's age to complete this topic Zoster Vaccines Completed 07/17/2025, 03/04/2025 HIB Vaccines Aged Out No longer eligi ble based on patient's age to complete this topic HPV Vaccines Aged Out No longer eligi ble based on patient's age to complete this topic Hepatitis A Vaccines Aged Out No long er eligible based on patient's age to complete this topic Hepatitis B Vaccines Aged Out No long er eligible based on patient's age to complete this topic IPV Vaccines Aged Out No longer eligi ble based on patient's age to complete this topic Meningococcal ACWY Vaccine Aged Out N o longer eligible based on patient's age to complete this topic Meningococcal B Vaccine Aged Out No l onger eligible based on patient's age to complete this topic RSV Immunization Patients Under 20 months Aged Out No longer eligible b ased on patient's age to complete this topic Varicella Vaccines Aged Out No longer eligible based on patient's age to complete this topic Procedures Procedure Name Priority Date/Time Associated Diagnosis Comments POCT GLUCOSE BLOOD Routine 08/22/2025 8: 05 PM EST CBC WITH AUTO DIFFERENTIAL STAT 08/17/2025 11:25 PM EST SALICYLATE LEVEL STAT 08/17/2025 11:2 5 PM EST ACETAMINOPHEN LEVEL STAT 08/17/2025 1 1:25 PM EST ETHANOL STAT 08/17/2025 11:25 PM EST COMPREHENSIVE METABOLIC PANEL STAT 08/17/2025 11:25 PM EST CBC AND DIFFERENTIAL STAT 08/17/2025 11:25 PM EST METHADONE SCREEN, URINE STAT 08/17/2025 11:18 PM EST PHENCYCLIDINE, URINE STAT 08/17/2025 11:18 PM EST BUPRENORPHINE SCREEN, URINE STAT 08/17/2025 11:18 PM EST DRUG ABUSE SCREEN 8A PANEL, URINE STAT 08/17/2025 11:18 PM EST from Last 3 Months Results * (ABNORMAL) POCT Glucose, blood (08/22/2025 8:05 PM EST) [facility] Glucose POCT 169(H) 70 - 100 mg/dL 08/22/2025 8:06 PM EST [facility] Blood Capillary blood specimen / Unknown 08/22/2025 8:05 PM EST 08/22/2025 8:07 PM EST us Generic Provider Poct LAB POINT OF CARE TEST DOCKED DEVICE UNSOLICITED RESULTS Final Result [facility] [address] [place] [address], [place] [phone] * (ABNORMAL) CBC auto differential (08/17/2025 11:25 PM EST) [facility] WBC 8.4 4.8 - 10.8 K/mcL LAB HEMETOLOGY METHOD 08/18/2025 12:22 AM [facility] RBC 4.30(L) 4.50 - 5.50 M/mcL LAB HEMETOLOGY METHOD 08/18/2025 12:22 AM [facility] Hemoglobin 12.6(L) 13.5 - 17.5 g/dL LAB HEMETOLOGY METHOD 08/18/2025 12:22 AM [facility] Hematocrit 36.8(L) 42.0 - 54.0 % LAB HEMETOLOGY METHOD 08/18/2025 12:22 AM [facility] MCV 86.0 79.0 - 98.0 FL LAB HEMETOLOGY METHOD 08/18/2025 12:22 AM [facility] MCH 29.4 27.0 - 32.0 pcg LAB HEMETOLOGY METHOD 08/18/2025 12:22 AM [facility] MCHC 34.2 32.0 - 37.0 g/dL LAB HEMETOLOGY METHOD 08/18/2025 12:22 AM [facility] RDW 11.9 11.0 - 15.0 % LAB HEMETOLOGY METHOD 08/18/2025 12:22 AM [facility] Platelets 194 130 - 400 K/mcL LAB HEMETOLOGY METHOD 08/18/2025 12:22 AM [facility] MPV 10.6 7.0 - 11.0 FL LAB HEMETOLOGY METHOD 08/18/2025 12:22 AM [facility] NRBC 0.0 <1.0 % LAB HEMETOLOGY METHOD 08/18/2025 12:22 AM [facility] NRBC Absolute 0.00 <0.10 K/mcL LAB HEMETOLOGY METHOD 08/18/2025 12:22 AM [facility] Neutrophils Relative 54.4 % LAB HEMETOLOGY METHOD 08/18/2025 12:22 AM [facility] Lymphocytes Relative 30.4 % LAB HEMETOLOGY METHOD 08/18/2025 12:22 AM [facility] Monocytes Relative 9.7 % LAB HEMETOLOGY METHOD 08/18/2025 12:22 AM [facility] Eosinophils Relative 4.4 % LAB HEMETOLOGY METHOD 08/18/2025 12:22 AM [facility] Basophils Relative 0.6 % LAB HEMETOLOGY METHOD 08/18/2025 12:22 AM [facility] Immature Granulocytes Relative 0.5 % LAB HEMETOLOGY METHOD 08/18/2025 12:22 AM [facility] Neutrophils Absolute 4.59 1.50 - 7.00 K/mcL LAB HEMETOLOGY METHOD 08/18/2025 12:22 AM [facility] Lymphocytes Absolute 2.56 1.00 - 5.00 K/mcL LAB HEMETOLOGY METHOD 08/18/2025 12:22 AM [facility] Monocytes Absolute 0.82 0.20 - 1.00 K/mcL LAB HEMETOLOGY METHOD 08/18/2025 12:22 AM [facility] Eosinophils Absolute 0.37 0.00 - 0.50 K/mcL LAB HEMETOLOGY METHOD 08/18/2025 12:22 AM [facility] Basophils Absolute 0.05 0.00 - 0.20 K/mcL LAB HEMETOLOGY METHOD 08/18/2025 12:22 AM [facility] Immature Granulocytes Absolute 0.04(H) 0.00 - 0.03 K/mcL LAB HEMETOLOGY METHOD 08/18/2025 12:22 AM [facility] Blood Venous blood specimen / Unknown Venipuncture / Unknown 08/17/2025 11:25 PM EST 08/18/2025 12:15 AM EST us Winifred Moody MD LAB BLOOD ORDERABLES Final Res ult Performing Organization Address City/[facility]/ZIP Co de Phone Number [facility] [address] [place] [address], [place] [phone] * Ethanol (08/17/2025 11:25 PM EST) Ethanol Level <3 0 - 10 mg/dL LAB CHEMISTRY METHOD 08/18/2025 12:48 AM EST [facility] Blood Venous blood specimen / Unknown Venipuncture / Unknown 08/17/2025 11:25 PM EST 08/18/2025 12:15 AM EST us Winifred Moody MD LAB BLOOD ORDERABLES Final Res ult Performing Organization Address [facility] de Phone Number [facility] [address] [place] [address], [place] [phone] * (ABNORMAL) Acetaminophen level (08/17/2025 11:25 PM EST) Acetaminophen Level 2.6(L) 10.0 - 30.0 mcg/mL LAB CHEMISTRY METHOD 08/18/2025 12:48 AM EST [facility] Blood Venous blood specimen / Unknown Venipuncture / Unknown 08/17/2025 11:25 PM EST 08/18/2025 12:15 AM EST us Winifred Moody MD LAB BLOOD ORDERABLES Final Res ult Performing Organization Address City/[facility]/ZIP Co de Phone Number [facility] [address] [place] [address], [place] [phone] * (ABNORMAL) Salicylate level (08/17/2025 11:25 PM EST) Salicylate Level <1.7(L) 2.0 - 29.0 mg/dL LAB CHEMISTRY METHOD 08/18/2025 12:48 AM [facility] Blood Venous blood specimen / Unknown Venipuncture / Unknown 08/17/2025 11:25 PM EST 08/18/2025 12:15 AM EST us Winifred Moody MD LAB BLOOD ORDERABLES Final Res ult [facility] [address] [place] [address], [place] [phone] * (ABNORMAL) Comprehensive metabolic panel (08/17/2025 11:25 PM EST) Sodium 139 133 - 145 mmol/L LAB CHEMISTRY METHOD 08/18/2025 12:48 AM [facility] Potassium 3.9 3.5 - 5.5 mmol/L LAB CHEMISTRY METHOD 08/18/2025 12:48 AM [facility] Chloride 106 96 - 110 mmol/L LAB CHEMISTRY METHOD 08/18/2025 12:48 AM [facility] CO2 30 21 - 32 mmol/L LAB CHEMISTRY METHOD 08/18/2025 12:48 AM [facility] Anion Gap 3 3 - 11 LAB CHEMISTRY METHOD 08/18/2025 12:48 AM [facility] Glucose 106(H) 70 - 100 mg/dL LAB CHEMISTRY METHOD 08/18/2025 12:48 AM [facility] BUN 23 5 - 25 mg/dL LAB CHEMISTRY METHOD 08/18/2025 12:48 AM [facility] Creatinine 1.14 0.70 - 1.30 mg/dL LAB CHEMISTRY METHOD 08/18/2025 12:48 AM [facility] eGFR 73 >=60 mL/min/1. 73m2 LAB CHEMISTRY METHOD 08/18/2025 12:48 AM [facility] Comment:Calculation based on the Chronic Kidney Disease Epidemiology Collaboration (CKD-EPI) equation refit without adjustment for race. BUN/Creatinine Ratio 20.2 LAB CHEMISTRY METHOD 08/18/2025 12:48 AM [facility] Calcium 8.4(L) 8.5 - 10.5 mg/dL LAB CHEMISTRY METHOD 08/18/2025 12:48 AM [facility] AST (SGOT) 32 10 - 42 unit/L LAB CHEMISTRY METHOD 08/18/2025 12:48 AM [facility] ALT (SGPT) 50 10 - 60 unit/L LAB CHEMISTRY METHOD 08/18/2025 12:48 AM [facility] Alkaline Phosphatase 71 42 - 121 unit/L LAB CHEMISTRY METHOD 08/18/2025 12:48 AM [facility] Total Protein 5.9(L) 6.0 - 8.0 g/dL LAB CHEMISTRY METHOD 08/18/2025 12:48 AM [facility] Albumin 3.3 3.2 - 5.0 g/dL LAB CHEMISTRY METHOD 08/18/2025 12:48 AM [facility] Total Bilirubin 0.7 0.0 - 1.4 mg/dL LAB CHEMISTRY METHOD 08/18/2025 12:48 AM [facility] Blood Venous blood specimen / Unknown Venipuncture / Unknown 08/17/2025 11:25 PM EST 08/18/2025 12:15 AM EST us Winifred Moody MD LAB BLOOD ORDERABLES Final Res ult [facility] [address] [place] [address], * Drug abuse screen 8a panel, urine (08/17/2025 11:18 PM EST) Amphetamine Screen, Ur Negative Negative LAB CHEMISTRY METHOD 08/18/2025 12:55 AM [facility] Comment:Certain OTC medicati ons containing ephedrine, phenylephrine, pseudoephedrine and phenylpropanolamine can cause false positive results. Barbiturate Screen, Ur Negative Negative LAB CHEMISTRY METHOD 08/18/2025 12:55 AM [facility] Benzodiazepine Screen, Ur Negative Negative LAB CHEMISTRY METHOD 08/18/2025 12:55 AM [facility] Cocaine Screen, Ur Negative Negative LAB CHEMISTRY METHOD 08/18/2025 12:55 AM [facility] Opiate Screen, Ur Negative Negative LAB CHEMISTRY METHOD 08/18/2025 12:55 AM [facility] Cannabinoid (THC) Screen, Ur Negative Negative LAB CHEMISTRY METHOD 08/18/2025 12:55 AM [facility] Comment:Specimens from patie nts taking pantoprazole sodium (Protonix) have been shown to produce false positive results. Oxycodone Screen, Ur Negative Negative LAB CHEMISTRY METHOD 08/18/2025 12:55 AM [facility] Fentanyl, Ur Negative Negative LAB CHEMISTRY METHOD 08/18/2025 12:55 AM [facility] Urine Urine specimen obtained by clean catch procedure / Unknown Non-blood Collection / Unknown 08/17/2025 11:18 PM EST 08/18/2025 12:14 AM [facility] - 08/18/2025 12:55 AM EST Assay cutoffs: Amphetamines 1000 ng/mL Barbiturates 200 ng/mL Benzodiazepines 200 ng/mL Cocaine 300 ng/mL Fentanyl 1 ng/mL Opiates 300 ng/mL Oxycodone 100 ng/mL THC 50 ng/mL Semi-quantitative assay for screening purposes only. Unconfirmed screening result should not be used for non-medical purposes. *ALTERNATE METHOD CONFIRMATION DONE UPON REQUEST ONLY* us Winifred Moody MD LAB URINE ORDERABLES Final Res ult [facility] [address] [place] [address], * Buprenorphine screen, urine (08/17/2025 11:18 PM EST) Buprenorphine Screen Urine Negative Negative LAB CHEMISTRY METHOD 08/18/2025 12:49 AM EST [facility] Urine Urine specimen obtained by clean catch procedure / Unknown Non-blood Collection / Unknown 08/17/2025 11:18 PM EST 08/18/2025 12:14 AM EST Narrative [facility] - 08/18/2025 12:49 AM EST Assay cutoff 5 ng/mL Semi-quantitative assay for screening purposes only. Unconfirmed screening result should not be used for non-medical purposes. *ALTERNATE METHOD CONFIRMATION DONE UPON REQUEST ONLY* us Winifred Moody MD LAB URINE ORDERABLES Final Res ult Performing Organization Address [facility]/ZIP Co de Phone Number [facility] [address] [place] [address], [place] [phone] * Methadone, urine (08/17/2025 11:18 PM EST) Methadone Screen, Urine Negative Negative LAB CHEMISTRY METHOD 08/18/2025 12:49 AM EST [facility] Comment: Assay cutoff 300 ng/mL Semi-quantitative assay for screening purposes only. Unconfirmed screening result should not be used for non-medical purposes. *ALTERNATE METHOD CONFIRMATION DONE UPON REQUEST ONLY* Urine Urine specimen obtained by clean catch procedure / Unknown Non-blood Collection / Unknown 08/17/2025 11:18 PM EST 08/18/2025 12:14 AM EST us Winifred Moody MD LAB URINE ORDERABLES Final Res ult Performing Organization Address City/[facility]/ZIP Co de Phone Number [facility] [address] [place] [address], [place] [phone] * Phencyclidine, urine (08/17/2025 11:18 PM EST) PCP Scrn, Ur Negative Negative LAB CHEMISTRY METHOD 08/18/2025 12:49 AM EST [facility] Comment: Assay cutoff 25 ng/mL Semi-quantitative assay for screening purposes only. Unconfirmed screening result should not be used for non-medical purposes. *ALTERNATE METHOD CONFIRMATION DONE UPON REQUEST ONLY* Urine Urine specimen obtained by clean catch procedure / Unknown Non-blood Collection / Unknown 08/17/2025 11:18 PM EST 08/18/2025 12:14 AM EST us Winifred Moody MD LAB URINE ORDERABLES Final Res ult [facility] [address] [place] [address], from Last 3 Months Insurance [facility] MEDICAID [employer]VANTAGE Care Teams [employer]ed [employer] Relationship Specialty Start Date End Date Guille Roberts MD [address] [place] [address] PCP - General Internal Medicine 09/23/24
--- OUTSIDE RECORDS SUMMARY | 2025-09-08 20:06 | XMS_ITS | Encounter Summary ---
Author Organization [facility] Address [address] [place] [id number] Phone Care Team Providers Care Heating Operators Engineer Name Role Phone Pcp, Unknown Primary Care Provider John Nickerson Primary Care Provide r Encounter Details Date Type Department Care Team (Late st Contact Info) Description 05/05/2025 Procedure Pass [facility], [facility] Scan - [facility] [address] [place] [address] Social History Tobacco Use Types Packs/Day Years [...] 3:55 PM EDT Rosemary Hdez, RN * [place] Suicide Severity Rating Scale (Screener/Recent Self-Report) Question [...] documented as of this encounter Care Teams Heating Operators Engineer Relationship Specialty Start Date End Date Pcp, Unknown PCP - General 05/05/25 06/30/25 John Magallanes PA [address] [place] [address] PCP - General Physician Log Roper 07/01/25 documented as of this encounter Additional Source Comments The information contained in this document represents components of the legal health record. It is not the complete legal health record.[facility]
--- NOTE | 2025-09-08 21:19 | ED_ITS ---
HPI - Fall General Chief Complaint: Fall Stated Complaint: Fell out of wheelchair -hs -LOC, back, neck, R leg Time Seen by Provider: 09/08/25 21:09 Source: patient and EMS Mode of arrival: EMS Limitations: no limitations History of Present Illness ED Provider: Dr. Nataliia Wellington HPI Narrative: Patient comes to the emergency room via ambulance from home. Patient states that he fell asleep sitting in his wheelchair, then suddenly he just slumped over to the floor and landed on the left side. Patient denies hitting his head or losing consciousness, patient complaining of left-sided shoulder pain. Patient states that he has mild left-sided neck pain, mild hip pain, my left leg pain. Patient states that what bothers him the most is the left shoulder. Related Data Previous Rx's ?Medication ?Instructions ?Recorded acetaminophen 500 mg tablet 500 mg PO Q6H PRN fever or pain 09/08/25 #20 tabs Allergies Allergy/AdvReac Type Severity Reaction Status Date / Time No Known Allergies Allergy Verified 09/08/25 19:36 Review of Systems Review of Systems: Constitutional : No Weight loss, No Fever, No Chills, No Night Sweats, No Fatigue, No Malaise ENT/Mouth : No Hearing loss, No Ear Pain, No Nasal Congestion, No Sinus Pain, No Hoarseness, No sore throat, No Rhinorrhea, No Swallowing Difficulty Eyes: No Eye Pain, No Swelling, No Redness, No Foreign Body, No Discharge, No Vision Changes Cardiovascular : No Chest Pain, No SOB, No Dyspnea on Exertion, No Orthopnea, No Edema, No Palpitations Respiratory : No Cough, No Sputum, No Wheezing, No Smoke Exposure, No Dyspnea Gastrointestinal : No Nausea, No Vomiting, No Diarrhea, No Constipation, No abdominal Pain, No Hematochezia, No Melena Genitourinary : no irregular bleeding, No Dysuria, No Urinary Frequency, No Hematuria, No Urinary Incontinence, No Urgency, No Flank Pain, No Urinary Flow Changes, No Hesitancy Musculoskeletal : Complaining of left arm left hip left leg pain the phone Skin : No Skin Lesions, No rash Neuro : No Weakness, No Numbness, No Paresthesias, No Loss of Consciousness, No Dizziness, No Headache Psych : No Anxiety/Panic, No Depression, No SI/HI/AH/VH, No Social Issues, Heme/Lymph: No Bruising, No Bleeding,No Lymphadenopathy Endocrine : No Polyuria, No Polydipsia, No Temperature Intolerance [facility] Social History Social History Smoked in Last 30 Days: No Use of substances other than those prescribed or required for medical reasons: No Advance Directives: No Advance Directives Information Provided: No Do you have a plan to hurt others: No Plan Physical Exam Exam: Exam: Appearance: Alert. Oriented X3. No acute distress. Eyes: Pupils equal, round and reactive to light. ENT: Pharynx normal. Neck: Normal inspection. Neck supple. No lymph nodes noted. No crepitus, no C- spine tenderness, no palpable step-offs, patient has normal flexion and extension and normal movements with the neck. CVS: Normal heart rate and rhythm. Pulses normal. Normal S1 and S2 Respiratory: No respiratory distress. Breath sounds normal. No Wheezing. No rales Abdomen: Soft and nontender. No rigidity. No distention. Skin: Skin warm and dry. Normal skin color. Normal skin turgor. Extremities: Patient has a BKA on the right side. Patient is able to flex extend the shoulder elbow wrist, able to flex the hip, able to flex/extend the knee on the left side. No ecchymosis in any extremity Neuro: Oriented X 3. No motor deficit. No sensory deficit. Moving all extremities. No slurred speech. CN 2 through 12 grossly intact Psych: calm, cooperative, normal affect Vital Signs: Vital Signs: Last Vital Signs Temp 98.7 F 09/08/25 22:17 Pulse 80 09/08/25 22:17 Resp 18 09/08/25 22:17 BP 148/70 H 09/08/25 22:17 Pulse Ox 95 09/08/25 22:17 O2 Del Method Room Air 09/08/25 22:17 BMI result Body Mass Index 32.2 Course Course Course Narrative: Patient complaining of multiple sites of pain. However, patient shoulder seems to be hurting the most. Patient is able to flex and extend both upper and lower extremities and joints with normal range of motion. Medical Decision Making Medical Decision Making [facility] Narrative: X-rays of the shoulder did not show any acute abnormality Independent Interpretation I performed an independent interpretation of an: Plain X-Ray Radiology Impression Discussion of test interpretation with radiology: I have reviewed the radiologist's reading. Radiologist Impression: Bones intact. No dislocations. 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 No erosions. No radiopaque foreign body. Calcification of the distal supraspinatus. IMPRESSION: 1. No acute osseous abnormality. 2. Supraspinatus calcific tendinosis. Discharge Plan Discharge Clinical Impression: Fall, Contusion Patient Disposition: Home, Self-Care Additional Instructions: Please follow-up with your primary care physician tomorrow. If you have any worsening or new symptoms, please return to the emergency room or call 911 Prescriptions: New acetaminophen 500 mg tablet 500 mg PO Q6H PRN (Reason: fever or pain) Qty: 20 0RF Print Language: Yoruba
[2025-09-08 22:17] VITALS: BP 148/70; PULSE 80; RESP 18; TEMP 37.1; O2SAT 95
[2025-09-08 23:30] VITALS: BP 163/76; PULSE 83; RESP 18; TEMP 37.1; O2SAT 96
[2025-09-08 23:31] VITALS: BP 163/76; PULSE 83; RESP 18; TEMP 37.1; O2SAT 96
== END 2025-09-08 23:35 | disposition home or self-care (01) ==
PROVIDERS: Emergency Provider Emergency Medicine; PCP Physician Assistant
DX: S40.012A Contusion of left shoulder, initial encounter (principal); W05.0XXA Fall from non-moving wheelchair, initial encounter; Y93.9 Activity, unspecified; Y92.9 Unspecified place or not applicable; Y99.9 Unspecified external cause status; Z89.511 Acquired absence of right leg below knee
CPT/HCPCS: 73030; 99283; 99284

== ENCOUNTER → 2025-09-08 21:17 | Outpatient (BNV) | payer OTHER, SELFPAY | PROVIDERS: Emergency Provider Emergency Medicine; PCP Physician Assistant; Visit Provider General Practice | DX: M25.512 Pain in left shoulder (principal); M75.32 Calcific tendinitis of left shoulder; Z04.3 Encounter for examination and observation following other accident | CPT/HCPCS: 73030 ==